=== PATIENT | female | born 2000 | race Caucasian/White ===

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

== ENCOUNTER 2019-06-13 23:41 | Outpatient (CLI) | payer OTHER, MEDICAID ==
[~2019-06-13] VITALS: Ht 162.6 cm; Wt 66.0 kg
[~2019-06-13 23:41] MED LIST: IBUP-1222 PO
[2019-06-14 00:05] VITALS: BP 114/56
[2019-06-14 00:14] VITALS: BP 114/56
== END 2019-06-14 00:45 | disposition home or self-care (01) ==
LOC: LDOP 23:41
PROVIDERS: ATTEND Obstetrics & Gynecology
DX: O42.92 Full-term premature rupture of membranes, unspecified as to length of time between rupture and onset of labor (principal); O62.9 Abnormality of forces of labor, unspecified; Z3A.39 39 weeks gestation of pregnancy
CPT/HCPCS: 59025; 89060; 99211; G0463; Q0114

== ENCOUNTER 2019-06-19 14:07 | Inpatient (IN) | payer OTHER, MEDICAID ==
[~2019-06-19] VITALS: Ht 162.6 cm; Wt 56.4 kg
[2019-06-19] MEDS ORDERED: OXYTOCIN 30U/ 0.9% NaCL 500ML 500 ML IV ONE (14:28)
[2019-06-19] MEDS ORDERED: LACTATED RINGERS 1,000 ML IV SCH (14:28)
[2019-06-19] MEDS ORDERED: D5%-LACTATED RINGERS 1,000 ML IV SCH (14:28)
[2019-06-19] MEDS ORDERED: FENTANYL PF 100 MCG/2ML IV PRN (14:30)
[2019-06-19] MEDS ORDERED: TERBUTALINE 1 MG/ML, 1ML SQ PRN (14:30)
[2019-06-19] MEDS ORDERED: SODIUM CITRATE/CITRIC ACID 30 ML UDC PO PRN (14:30)
[2019-06-19] MEDS ORDERED: FENTANYL PF 100 MCG/2ML IVPush PRN (14:30)
[2019-06-19] MEDS ORDERED: TERBUTALINE 1 MG/ML, 1ML IVPush PRN (14:30)
[2019-06-19] MEDS ORDERED: ONDANSETRON 2MG/ML, 2ML IVPush PRN (14:30)
[2019-06-19] MEDS ORDERED: METOCLOPRAMIDE 5 MG/ML, 2ML IVPush PRN (14:30)
[2019-06-19 14:49] VITALS: BP 118/65
[2019-06-19] MEDS ORDERED: NEWBORN KIT ONE (15:10)
[2019-06-19 15:18] LABS: BASOPHILS # (AUTO) 0.03 x10^3/uL (0-0.3); BASOPHILS % (AUTO) 0 % (0-1); EOSINOPHILS % (AUTO) 1 % (1-7); LYMPHOCYTES # (AUTO) 1.73 x10^3/uL (1-6.1); LYMPHOCYTES % (AUTO) 16 % (22-44); MD NO; MEAN CORPUSCULAR HEMOGLOBIN 27.5 pg (27.0-34.8); MEAN CORPUSCULAR HGB CONC 32.7 g/dL (32.4-35.8); MEAN CORPUSCULAR VOLUME 83.9 fL (80-100); MEAN PLATELET VOLUME 9.2 fL (7.4-10.4); MONOCYTES % (AUTO) 6 % (2-9); NEUTROPHILS # (AUTO) 8.24 x10^3/uL (1.8-8.0); NEUTROPHILS % (AUTO) 77 % (42-75); PLATELET COUNT 226 x10^3/uL (130-400); RED BLOOD COUNT 4.19 x10^6/uL (3.82-5.3); RED CELL DISTRIBUTION WIDTH 16.9 % (9.6-15.2)
[2019-06-19] MEDS ORDERED: OXYTOCIN 30U/ 0.9% NaCL 500ML 500 ML ONE ×2 (16:12→18:31)
[2019-06-19] MEDS ORDERED: LIDOCAINE 1%, 20ML ONE (16:12)
[2019-06-19] MEDS ORDERED: MISOPROSTOL 200 MCG TABLET ONE (16:12)
[2019-06-19] MEDS ORDERED: IBUPROFEN 600 MG TABLET ONE (18:25)
[2019-06-19] MEDS: LACTATED RINGERS 1,000 ML IV SCH (18:38)
[2019-06-19] MEDS: OXYTOCIN 30U/ 0.9% NaCL 500ML 500 ML IV SCH ×5 (18:38→22:26)
[2019-06-19] MEDS ORDERED: IBUPROFEN 600 MG TABLET PO PRN ×2 (19:00→20:00)
[2019-06-19] MEDS ORDERED: ACETAMINOPHEN 325 MG TABLET PO PRN ×2 (19:00→20:00)
[2019-06-19] MEDS ORDERED: DOCUSATE 100 MG CAPSULE PO PRN ×2 (19:00→20:00)
[2019-06-19] MEDS ORDERED: OXYcodone/APAP 5/325MG TABLET PO PRN ×3 (19:00→20:00)
[2019-06-19] MEDS ORDERED: SIMETHICONE 80 MG CHEW TAB PO PRN ×2 (19:00→20:00)
[2019-06-19] MEDS ORDERED: MISOPROSTOL 200 MCG TABLET PR PRN (19:00)
[2019-06-19 19:20] VITALS: BP 94/58
[2019-06-19] MEDS ORDERED: ONDANSETRON 2MG/ML, 2ML IV PRN (20:00)
[2019-06-19] MEDS ORDERED: OXYcodone IR 5MG TABLET PO PRN (20:00)
[2019-06-19] MEDS ORDERED: OXYTOCIN 10 UNITS/ML, 1ML IM PRN (20:00)
[2019-06-19] MEDS ORDERED: RHOGAM FROM BLOOD BANK 1 NOTE EA IM/IV ONE (20:00)
[2019-06-19] MEDS ORDERED: METHYLERGONOVINE 0.2 MG/ML IM PRN (20:00)
[2019-06-19 20:20] VITALS: BP 100/56
[2019-06-19 23:30] VITALS: BP 101/62
[2019-06-20 02:05] LABS: BASOPHILS # (AUTO) 0.04 x10^3/uL (0-0.3); BASOPHILS % (AUTO) 0 % (0-1); EOSINOPHILS # (AUTO) 0.03 x10^3/uL (0-0.8); EOSINOPHILS % (AUTO) 0 % (1-7); LYMPHOCYTES # (AUTO) 1.83 x10^3/uL (1-6.1); LYMPHOCYTES % (AUTO) 13 % (22-44); MD NO; MEAN CORPUSCULAR HEMOGLOBIN 26.8 pg (27.0-34.8); MEAN CORPUSCULAR HGB CONC 32.2 g/dL (32.4-35.8); MEAN CORPUSCULAR VOLUME 83.4 fL (80-100); MEAN PLATELET VOLUME 8.6 fL (7.4-10.4); MONOCYTES # (AUTO) 0.55 x10^3/uL (0-1.4); MONOCYTES % (AUTO) 4 % (2-9); NEUTROPHILS # (AUTO) 11.62 x10^3/uL (1.8-8.0); NEUTROPHILS % (AUTO) 83 % (42-75); PLATELET COUNT 224 x10^3/uL (130-400); RED BLOOD COUNT 4.05 x10^6/uL (3.82-5.3); RED CELL DISTRIBUTION WIDTH 16.8 % (9.6-15.2)
[2019-06-20 04:10] VITALS: BP 96/56
[2019-06-20] MEDS: LACTATED RINGERS 1,000 ML IV SCH ×2 (04:38→14:38)
[2019-06-20] MEDS: OXYTOCIN 30U/ 0.9% NaCL 500ML 500 ML IV SCH ×4 (04:38→15:34)
[2019-06-20 07:30] VITALS: BP 99/60
[2019-06-20] MEDS ORDERED: PRENATAL VIT/IRON/FA 1 EACH TABLET PO SCH ×2 (09:00)
[2019-06-20 12:08] VITALS: BP 100/69
== END 2019-06-20 18:05 | disposition home or self-care (01) | DRG 807 ==
LOC: LDOP 14:07 → LDIP 15:06 → 2NW 19:57
PROVIDERS: ADMIT Obstetrics & Gynecology; ATTEND Obstetrics & Gynecology
PROC: 10E0XZZ Delivery of Products of Conception, External Approach (ICD-10-PCS; principal; 2019-06-19)
PROC: 10907ZC Drainage of Amniotic Fluid, Therapeutic from Products of Conception, Via Natural or Artificial Opening (ICD-10-PCS; 2019-06-19)
DX: O80 Encounter for full-term uncomplicated delivery (principal); Z37.0 Single live birth; Z3A.39 39 weeks gestation of pregnancy; Z88.0 Allergy status to penicillin
CPT/HCPCS: 36415; 85025; 86592; 86850; 86900; G0378; J2590; J7120

== ENCOUNTER 2019-07-24 20:04 | Emergency (ER) | payer OTHER, MEDICAID ==
[~2019-07-24] VITALS: Ht 162.6 cm; Wt 60.6 kg
[2019-07-24 20:10] VITALS: BP 112/74
--- NOTE | 2019-07-24 21:21 | NUR ---
VELCRO SPLINT APPLIED TO L WRIST. Patient/Caregiver given discharge instructions and they have confirmed that they understand the instructions. Patient ambulatory with steady gait.
== END 2019-07-24 21:22 | disposition home or self-care (01) ==
LOC: ED 21:19
DX: M77.9 Enthesopathy, unspecified (principal)
CPT/HCPCS: 29125; 99283

== ENCOUNTER 2020-09-18 17:44 | Emergency (ER) | payer MEDICAID, OTHER ==
[~2020-09-18] VITALS: Ht 162.6 cm; Wt 50.0 kg
[2020-09-18 18:06] VITALS: BP 114/70
[2020-09-18 18:55] LABS: BASOPHILS % (AUTO) 1 % (0-1); EOSINOPHILS % (AUTO) 2 % (1-7); LYMPHOCYTES % (AUTO) 30 % (22-44); MEAN CORPUSCULAR HEMOGLOBIN 31.2 pg (27.0-34.8); MEAN CORPUSCULAR HGB CONC 34.7 g/dL (32.4-35.8); MEAN PLATELET VOLUME 7.3 fL (7.4-10.4); MONOCYTES % (AUTO) 8 % (2-9); NEUTROPHILS % (AUTO) 60 % (42-75); PLATELET COUNT 320 x10^3/uL (130-400); RED BLOOD COUNT 4.09 x10^6/uL (3.82-5.3); RED CELL DISTRIBUTION WIDTH 13.1 % (9.6-15.2)
[2020-09-18 19:04] LABS: ALBUMIN 3.7 g/dL (3.4-5.0); ANION GAP 4 mmol/L (5-15); CHLORIDE 108 mmol/L (98-107)
[2020-09-18 19:11] LABS: ALANINE AMINOTRANSFERASE 42 U/L (12-78); ALKALINE PHOSPHATASE 67 U/L (45-117); BILIRUBIN,TOTAL 1.3 mg/dL (0.2-1.0); CREATININE 0.61 mg/dL (0.55-1.02); TOTAL PROTEIN 7.8 g/dL (6.4-8.2)
--- NOTE | 2020-09-18 19:51 | NUR ---
PT NA X 1 @ 191, NA X 2 @192
--- NOTE | 2020-09-18 20:07 | NUR ---
PT CAME IN CO RIGHT FLANK PAIN SINCE FRIDAY. PT DENIES BLOOD IN URINE. PT PROVIDED UA AND LABS DRAWN. PT ACCOMPANIED BY MOTHER. RESTING IN RNEY. CONNECTED TO MONITORS.
[2020-09-18 20:14] LABS: MICROSCOPIC AUTO
[2020-09-18] MEDS ORDERED: CEFDINIR 300 MG CAPSULE ONE (20:29)
[2020-09-18] MEDS ORDERED: KETOROLAC 30 MG/1 ML IVPush ONE (20:30)
[2020-09-18] MEDS ORDERED: CEFDINIR 300 MG CAPSULE PO ONE (20:30)
[2020-09-18] MEDS ORDERED: KETOROLAC 30 MG/1 ML ONE (20:33)
[2020-09-18] MEDS ORDERED: KETOROLAC 30 MG/1 ML IM ONE (21:00)
== END 2020-09-18 21:03 | disposition home or self-care (01) ==
LOC: ED 18:00
DX: N10 Acute pyelonephritis (principal); R11.0 Nausea
CPT/HCPCS: 36415; 76700; 80053; 81001; 83690; 84703; 85025; 87077; 87086; 87186; 99284; J1885